=== PATIENT | female | born 1960 | race Caucasian/White ===

== ENCOUNTER → 2016-08-24 | Outpatient (CLI) | payer BC ==
--- NOTE | 2016-08-28 08:46 | MM ---
Reason for exam: screening (asymptomatic). History: Patient is postmenopausal and had first child at age 34. Physical Findings: A clinical breast exam by your physician is recommended on an annual basis and results should be correlated with mammographic findings. MG Screening Mammo w CAD Bilateral CC and MLO view(s) were taken. Finding: There is a vague 6 mm equal obscured round mass in the middle position of the left breast CC view. New finding. ASSESSMENT: Incomplete: need additional imaging evaluation, BI-RAD 0 RECOMMENDATION: Special view mammogram of the left breast. [facility] will attempt to contact patient to return for supplemental views.
== END | disposition home or self-care (01) ==
LOC: RADMAMWWP 06:44
PROVIDERS: ATTEND Family Medicine
DX: Z12.31 Encounter for screening mammogram for malignant neoplasm of breast (principal)

== ENCOUNTER → 2016-08-31 | Outpatient (CLI) | payer BC ==
--- NOTE | 2016-08-31 08:11 | MM ---
Reason for exam: additional evaluation requested from abnormal screening. Last mammogram was performed less than 1 month ago. History: Patient is postmenopausal and had first child at age 34. Physical Findings: Nurse did not find any significant physical abnormalities on exam. MG Work Up Mamm w CAD LT ML and spot compression CC view(s) were taken of the left breast. Prior study comparison: August 24, 2016, bilateral MG screening mammo w CAD. August 09, 2015, mammogram, performed at [facility]. March 13, 2014, mammogram, performed at [facility]. The breast tissue is heterogeneously dense. This may lower the sensitivity of mammography. The questioned lateral asymmetric density on the CC view does not clearly persists. Precautionary 6 month follow up recommended. These results were verbally communicated with the patient and result sheet given to the patient on 08/31/16. ASSESSMENT: Probably benign, BI-RAD 3 RECOMMENDATION: Follow-up diagnostic mammogram of the left breast in 6 months.
== END | disposition home or self-care (01) ==
LOC: RADMAMWWP 06:49
PROVIDERS: ATTEND Family Medicine
DX: R92.8 Other abnormal and inconclusive findings on diagnostic imaging of breast (principal)

== ENCOUNTER → 2017-10-03 | Outpatient (CLI) | payer BC ==
--- NOTE | 2017-10-03 07:35 | MM ---
Reason for exam: additional evaluation requested from prior study. Last mammogram was performed 1 year and 1 month ago. History: Patient is postmenopausal and had first child at age 34. Physical Findings: Nurse did not find any significant physical abnormalities on exam. MG 3D Diag Mammo W/Cad VIKI Bilateral CC and MLO view(s) were taken. Prior study comparison: August 31, 2016, left breast MG work up mamm w CAD LT. August 24, 2016, bilateral MG screening mammo w CAD. The breast tissue is heterogeneously dense. This may lower the sensitivity of mammography. There is chronic nodularity in the left breast. No significant new findings when compared with previous films. These results were verbally communicated with the patient and result sheet given to the patient on 10/03/17. ASSESSMENT: Benign, BI-RAD 2 RECOMMENDATION: Routine screening mammogram of both breasts in 1 year.
== END | disposition home or self-care (01) ==
LOC: RADMAMWWP 06:45
PROVIDERS: ATTEND Family Medicine
DX: R92.8 Other abnormal and inconclusive findings on diagnostic imaging of breast (principal)
CPT/HCPCS: 77062; 77066

== ENCOUNTER → 2018-02-01 | Outpatient (CLI) | payer BC ==
--- NOTE | 2018-02-03 13:05 | MR ---
EXAMINATION TYPE: MR cervical spine wo/w con DATE OF EXAM: 02/01/2018 COMPARISON: 07/07/2014 HISTORY: Neck pain, burning sensation down lt arm, hx surgery 2015 TECHNIQUE: Multiplanar, multisequence images of the cervical spine were acquired utilizing 7.5 mL intravenous Ga davist gadolinium contrast. Diffusion weighted imaging was performed. C2-C3: Mild disc bulge is present with mild anterior thecal sac compression. No cord contact is evide nt. No spinal canal stenosis or neural foraminal stenosis is present. C3-C4: There is a broad-based central disc herniation extending posterior to the C4 level. This has m oderate anterior thecal sac compression. Cord deformity is present. Mild cord contact is present. The se appear to be increased changes comparison. AP spinal canal measures 0.89 cm, stable from compariso n. C4-C5: There is some central focal bulging with mild anterior thecal sac compression. No cord contact is evident. No spinal canal stenosis is present. Neural foramen are patent. C5-C6: No evidence for degenerative disc disease. No disc bulge/herniation or protrusion. No Canal stenosis. Mild to moderate foraminal narrowing is present bilaterally. C6-C7: No evidence for degenerative disc disease. No disc bulge/herniation or protrusion. No Canal stenosis. Moderate foraminal stenosis appears to be present bilaterally. C7-T1: No evidence for degenerative disc disease. No disc bulge/herniation or protrusion. No Canal stenosis. Foramina are patent bilaterally. Cervical segments are intact. There is normal alignment. Cervical spinal cord is of normal signal. Craniovertebral junction relationships are within normal limits. No tonsillar descent beyond 5 mm is evident. IMPRESSION: Central disc herniation C3-4 which appears increased from the comparison. This has moderate anterior thecal sac compression and some cord deformity. No cord signal abnormality is evident. 2. Foraminal narrowing C5-6 C6-7.
== END | disposition home or self-care (01) ==
LOC: RADMRIMAIN 20:29
PROVIDERS: ATTEND Orthopaedic Surgery Orthopaedic Surgery of the Spine
DX: M99.71 Connective tissue and disc stenosis of intervertebral foramina of cervical region (principal); M50.11 Cervical disc disorder with radiculopathy, high cervical region; G95.89 Other specified diseases of spinal cord; M54.6 Pain in thoracic spine; M79.1 Myalgia; Z98.1 Arthrodesis status
CPT/HCPCS: 72156; A9581

== ENCOUNTER → 2018-05-13 | Outpatient (CLI) | payer BC ==
--- NOTE | 2018-05-13 20:15 | MR ---
EXAMINATION TYPE: MR thoracic spine wo con DATE OF EXAM: 05/13/2018 COMPARISON: None HISTORY: Mid back pain and muscle spasms, scoliosis CONTRAST: Performed utilizing 0 mL intravenous Gadavist gadolinium contrast. TECHNIQUE: Multiplanar, multiecho imaging on a 3.0 Domonique magnet is performed through the thoracic spi ne. T2-T3: There is mild right paracentral endplate changes with mild anterior thecal sac contact. No spi nal canal stenosis is present. No cord contact is evident. T3-4: Mild endplate disc bulge has mild anterior thecal sac compression. No cord contact or spinal ca nal stenosis is present T4-5: Mild endplate changes are present with anterior thecal sac compression. No spinal canal stenosi s is present. T5-T6: No spinal canal stenosis is evident. No significant disc bulge or facet hypertrophy is present T6-7: Left and right paracentral disc bulges haven't mild to moderate anterior thecal sac compression . This comes in close approximation with the anterior left spinal cord. No spinal canal stenosis is p resent. T7-8: There is a moderate size right paracentral disc herniation with moderate anterior thecal sac co mpression. No cord contact or spinal canal stenosis is present. Correlate with right radicular sympto ms. T8-9: There is a left paracentral broad-based disc bulge with moderate anterior thecal sac compressio n. No cord contact is evident. This comes in close approximation with the spinal cord. Facet hypertro phy is present with right posterior lateral thecal sac compression which also comes in close approxim ation with the spinal cord. T9-10: Posterior lateral thecal sac compression from facet hypertrophy is present. This comes in clos e approximation with the right posterior spinal cord. No spinal canal stenosis is present. Some right paracentral disc bulging may be present with close approximation with the spinal cord. T10-T11: Facet hypertrophy is posterior lateral thecal sac compression. No spinal canal stenosis pres ent. T11-12: Facet hypertrophy is present with posterior lateral thecal sac compression. No cord contact o r spinal canal stenosis present. Spinal cord maintains normal signal through its visualized course. There is a mild scoliosis present. Vertebral body heights are preserved. Disc desiccation is present in the mid thoracic spine. Disc heights appear preserved. IMPRESSIONS: 1. Multilevel disc bulges and facet hypertrophy with posterior lateral thecal sac compression discuss ed above. Greatest effects appear to be at the T8-9 level without stenosis but in close approximation with the spinal cord. 2. Moderate size right paracentral disc herniation T7-8. Correlate with right radicular symptoms.
== END | disposition home or self-care (01) ==
LOC: RADMRIMAIN 18:37
PROVIDERS: ATTEND Physical Medicine & Rehabilitation
DX: M51.24 Other intervertebral disc displacement, thoracic region (principal); M46.94 Unspecified inflammatory spondylopathy, thoracic region
CPT/HCPCS: 72146

== ENCOUNTER 2018-09-30 11:50 | Emergency (ER) | payer BC ==
[2018-09-30 12:04] VITALS: TEMP 98.6
[2018-09-30] MEDS ORDERED: KETOROLAC 60 MG/2 ML VIAL IM STA (13:26)
[2018-09-30] MEDS ORDERED: MORPHINE SULFATE 4 MG/ML SYRINGE IM STA (13:26)
[2018-09-30] MEDS ORDERED: ORPHENADRINE 30 MG/ML 2 ML VIAL IM STA (13:27)
[2018-09-30] MEDS ORDERED: methylPREDNISolone SOD SUCCI 125 MG/2 ML VIAL IM ONE (13:27)
--- NOTE | 2018-09-30 13:45 | ED ---
Back Pain HPI - General Chief Complaint: Back Pain/Injury Stated Complaint: Back pain Time Seen by Provider: 09/30/18 12:54 Source: patient, RN notes reviewed, old records reviewed Limitations: no limitations - History of Present Illness Initial Comments: Patient is a 4-year-old female presents emergency Department today with complaints of thoracic back pain. Patient states the pain is worse with movement. She's had history of chronic thoracic tenderness as is Patient denies any recent falls or traumas. Denies any saddle anesthesias. She reports she was doing yard work. Patient states that it seemed like her symptoms started when she woke up this morning. - Related Data Home Medications Medication Instructions Recorded Confirmed Atorvastatin [Lipitor] 40 mg PO HS 08/12/14 08/17/14 Cyclobenzaprine [Flexeril] 10 mg PO HS 08/12/14 08/17/14 Levothyroxine Sodium [Synthroid] 125 mcg PO DAILY 08/12/14 08/17/14 Previous Rx's Medication Instructions Recorded Hydrocodone/Acetaminophen [York 1 each PO Q8HR PRN #90 tab 08/18/14 5-325] Acetaminophen with Codeine 1 tab PO Q6H PRN 3 Days #12 tab 09/30/18 [Tylenol w/codeine #3] Ibuprofen 600 mg PO TID #20 tablet 09/30/18 Allergies Allergy/AdvReac Type Severity Reaction Status Date / Time No Known Allergies Allergy Verified 09/30/18 12:01 Review of Systems ROS Statement: Those systems with pertinent positive or pertinent negative responses have been documented in the HPI. ROS Other: All systems not noted in ROS Statement are negative. Past Medical History Past Medical History: Hyperlipidemia, Musculoskeletal Disorder, Sleep Apnea/CPAP/BIPAP, Thyroid Disorder Additional Past Medical History / Comment(s): hx. migraines, numbness left arm, uses CPAP History of Any Multi-Drug Resistant Organisms: None Reported Past Surgical History: Appendectomy, Hernia Repair, Hysterectomy, Orthopedic Surgery, Tubal Ligation Additional Past Surgical History / Comment(s): thyroidectomy, toe surg. Past Anesthesia/Blood Transfusion Reactions: No Reported Reaction Past Psychological History: Depression Smoking Status: Current every day smoker Past Alcohol Use History: None Reported Past Drug Use History: None Reported - Past Family History Mother Family Medical History: No Reported History General Exam - General Exam Comments Initial Comments: 4-year-old female. Alert and oriented 3. No distress. Limitations: no limitations General appearance: alert, in no apparent distress Head exam: Present: atraumatic, normocephalic, normal inspection Eye exam: Present: normal appearance, PERRL, EOMI. Absent: scleral icterus, conjunctival injection, periorbital swelling ENT exam: Present: normal exam, mucous membranes moist Neck exam: Present: normal inspection. Absent: tenderness, meningismus, lymphadenopathy Respiratory exam: Present: normal lung sounds bilaterally. Absent: respiratory distress, wheezes, rales, rhonchi, stridor Cardiovascular Exam: Present: regular rate, normal rhythm, normal heart sounds. Absent: systolic murmur, diastolic murmur, rubs, gallop, clicks GI/Abdominal exam: Present: soft, normal bowel sounds. Absent: distended, tenderness, guarding, rebound, rigid Extremities exam: Present: normal inspection, full ROM, normal capillary refill. Absent: tenderness, pedal edema, joint swelling, calf tenderness Back exam: Present: normal inspection, tenderness (Thoracic spinal tenderness. Muscle spasms noted bilaterally. Pain with any range of motion noted.) Neurological exam: Present: alert, oriented X3, CN II-XII intact Psychiatric exam: Present: normal affect Skin exam: Present: warm, dry, intact, normal color. Absent: rash Course Vital Signs 09/30/18 09/30/18 12:01 15:05 Temperature 98.6 F Pulse Rate 74 61 Respiratory 18 16 Rate Blood Pressure 119/82 120/75 O2 Sat by Pulse 97 95 Oximetry Medical Decision Making - Medical Decision Making 4-year-old female with mid thoracic back pain worse with movement for the past day. She has history of chronic degenerative disease. The symptoms got a little slight Medrol Norflex. Patient was given pain medication as well. She does have some improvement, she has stable vital signs. No belly pain. Denies any saddle anesthesias. At this time patient' will be discharged with a course of anti-inflammatory medicine and pain medication. She states that she does have muscle relaxants that she has been using recently at home. All questions answered return parameters were discussed. - Radiology Data Radiology results: report reviewed Degenerative disc disease and scoliosis tone and thoracic spine Disposition Clinical Impression: Thoracic degenerative disc disease Disposition: HOME SELF-CARE Condition: Good Instructions (If sedation given, give patient instructions): Acute Low Back Pain (ED) Additional Instructions: Patient advised to follow-up with primary care doctor. Return to the emergency department if any alarming signs or symptoms occur. Prescriptions: Ibuprofen 600 mg PO TID #20 tablet Acetaminophen with Codeine [Tylenol w/codeine #3] 1 tab PO Q6H PRN 3 Days #12 tab PRN Reason: Pain Is patient prescribed a controlled substance at d/c from ED?: No Referrals: Antoni Ni MD [Primary Care Provider] - 1-2 days Time of Disposition: 14:45
--- NOTE | 2018-09-30 14:18 | XR ---
Thoracic spine HISTORY: Pain 3 views of the thoracic spine There is an S-shaped thoracic scoliosis. Postop changes are noted in the cervical spine. Multilevel s pondylosis is present. Loss of disc height at the intervertebral levels at the mid thoracic spine. Th oracic vertebral bodies show preserved height. Bone mineralization is reduced. IMPRESSION: Degenerative disc disease and scoliosis.
[2018-09-30 15:13] VITALS: BP 120/75; PULSE 61; RESP 16
== END 2018-09-30 15:05 | disposition home or self-care (01) ==
LOC: EC 11:50
DX: M51.34 Other intervertebral disc degeneration, thoracic region (principal); M41.84 Other forms of scoliosis, thoracic region; E78.5 Hyperlipidemia, unspecified; E07.9 Disorder of thyroid, unspecified; G47.30 Sleep apnea, unspecified; F17.200 Nicotine dependence, unspecified, uncomplicated; Z79.890 Hormone replacement therapy; Z79.899 Other long term (current) drug therapy; Z99.89 Dependence on other enabling machines and devices
CPT/HCPCS: 72070; 99284; 96372 ×4; J2270; J2360; J2930; J1885

== ENCOUNTER → 2018-10-07 | Outpatient (CLI) | payer BC ==
--- NOTE | 2018-10-08 13:46 | MM ---
Reason for exam: screening (asymptomatic). Last mammogram was performed 1 year ago. History: Patient is postmenopausal and had first child at age 34. Physical Findings: A clinical breast exam by your physician is recommended on an annual basis and results should be correlated with mammographic findings. MG Screening Mammo w CAD Bilateral CC and MLO view(s) were taken. Prior study comparison: October 03, 2017, bilateral MG 3d diag mammo w/cad VIKI. August 31, 2016, left breast MG work up mamm w CAD LT. The breast tissue is heterogeneously dense. This may lower the sensitivity of mammography. No suspicious abnormality. No significant changes when compared with prior studies. ASSESSMENT: Negative, BI-RAD 1 RECOMMENDATION: Routine screening mammogram of both breasts in 1 year.
== END | disposition home or self-care (01) ==
LOC: RADMAMWWP 06:47
PROVIDERS: ATTEND Family Medicine
DX: Z12.31 Encounter for screening mammogram for malignant neoplasm of breast (principal)
CPT/HCPCS: 77067

== ENCOUNTER → 2021-01-12 | Outpatient (CLI) | payer BC ==
--- NOTE | 2021-01-14 14:35 | MM ---
Reason for exam: screening (asymptomatic). Last mammogram was performed 2 years and 3 months ago. History: Patient is postmenopausal and had first child at age 34. Physical Findings: A clinical breast exam by your physician is recommended on an annual basis and results should be correlated with mammographic findings. MG 3D Screening Mammo W/Cad Bilateral CC and MLO view(s) were taken. Prior study comparison: October 07, 2018, bilateral MG screening mammo w CAD. October 03, 2017, bilateral MG 3d diag mammo w/cad IVKI. August 24, 2016, bilateral MG screening mammo w CAD. The breast tissue is heterogeneously dense. This may lower the sensitivity of mammography. No significant changes when compared with prior studies. ASSESSMENT: Negative, BI-RAD 1 RECOMMENDATION: Routine screening mammogram of both breasts in 1 year.
== END | disposition home or self-care (01) ==
LOC: RADMAMWWP 14:20
PROVIDERS: ATTEND Family Medicine
DX: Z12.31 Encounter for screening mammogram for malignant neoplasm of breast (principal)
CPT/HCPCS: 77063; 77067

== ENCOUNTER → 2022-04-05 | Outpatient (CLI) | payer BC ==
--- NOTE | 2022-04-05 11:18 | US ---
EXAMINATION TYPE: US carotid duplex BILAT DATE OF EXAM: 04/05/2022 COMPARISON: NONE CLINICAL HISTORY: H53.9 VISUAL DISTURBANCE. No HTN. No hx TIA. TECHNIQUE: Carotid duplex ultrasound examination. Indirect Doppler criteria was utilized. FINDINGS: EXAM MEASUREMENTS: RIGHT: Peak Systolic Velocity (PSV) cm/sec ----- Right CCA: 53.7 ----- Right ICA: 90.8 ----- Right ECA: 116.0 ICA/CCA ratio: 1.7 RIGHT: End Diastole cm/sec ----- Right CCA: 18.0 ----- Right ICA: 36.9 ----- Right ECA: 25.4 LEFT: Peak Systolic Velocity (PSV) cm/sec ----- Left CCA: 68.6 ----- Left ICA: 83.4 ----- Left ECA: 87.8 ICA/CCA ratio: 1.2 LEFT: End Diastole cm/sec ----- Left CCA: 30.2 ----- Left ICA: 38.4 ----- Left ECA: 21.9 VERTEBRALS (direction of flow): Right Vertebral: Antegrade Left Vertebral: Antegrade Rhythm: Normal [employer]IST NOTES: No significant velocity elevations and stenosis. Plaque seen in bilateral bulbs. IMPRESSION: No evidence for hemodynamically significant stenosis. Criteria for Assigning % of Stenosis / Diameter reduction (Estimation based on the indirect measurements of the internal carotid artery velocities (ICA PSV). 1. Normal (no stenosis)=ICA PSV < 125 cm/s: ratio < 2.0: ICA EDV<40 cm/s. 2. Less than 50% stenosis=ICA PSV < 125 cm/s: ratio < 2.0: ICA EDV<40 cm/s. 3. 50 to 69% stenosis=ICA PSV of 125 to 230 cm/s: ration 2.0 ? 4.0: ICA EDV 40-100 cm/s. 4. Greater than 70% stenosis to near occlusion= ICA PSV > 230 cm/s: ratio > 4.0: ICA EDV > 100 cm/s. 5. Near occlusion= ICA PSV velocities may be low or undetectable: variable ratio and ICA EDV. 6. Total occlusion=unable to detect flow.
== END | disposition home or self-care (01) ==
LOC: RADUSWWP 10:25
PROVIDERS: ATTEND Family Medicine
DX: H53.9 Unspecified visual disturbance (principal)
CPT/HCPCS: 93880

== ENCOUNTER → 2022-04-20 | Outpatient (CLI) | payer BC ==
--- NOTE | 2022-04-21 12:05 | MM ---
Reason for Exam: Screening (asymptomatic). Last mammogram was performed 1 year(s) and 3 month(s) ago. Patient History: Menarche at age 15. First Full-Term at age 34. Late child-bearing (after 30). Left ovary removed at age 43. Right ovary removed at age 43. Hysterectomy at age 43. Postmenopausal. Risk Values: Carol 5 year model risk: 2.0%. NCI Lifetime model risk: 8.4%. Prior Study Comparison: 10/03/2017 Bilateral Diagnostic Mammogram, [facility]. 10/07/2018 Bilateral Screening Mammogram, [facility]. 01/12/2021 Bilateral Screening Mammogram, [facility]. Tissue Density: The breast tissue is extremely dense which could obscure a lesion on mammography. Findings: Analyzed By CAD. Pattern appears stable. No significant interval change No suspicious groups of microcalcifications, spiculated or lobular masses, architectural distortion or other secondary signs of malignancy are mammographically apparent. Overall Assessment: Benign, BI-RAD 2 Management: Screening Mammogram of both breasts in 1 year. A negative mammogram report should not preclude additional follow up of suspicious palpable abnormalities. Patient should continue monthly self breast exam. A clinical breast exam by your physician is recommended on an annual basis and results should be correlated with mammographic findings. Electronically signed and approved by: Mason Mccall D.O. Radiologis
== END | disposition home or self-care (01) ==
LOC: RADMAMWWP 16:26
PROVIDERS: ATTEND Family Medicine
DX: Z12.31 Encounter for screening mammogram for malignant neoplasm of breast (principal); Z78.0 Asymptomatic menopausal state
CPT/HCPCS: 77067

== ENCOUNTER → 2023-02-16 | Outpatient (CLI) | payer BC ==
--- NOTE | 2023-02-16 10:35 | CT ---
EXAMINATION TYPE: CT angio chest DATE OF EXAM: 02/16/2023 9:23 AM COMPARISON: None HISTORY: Chest pain CT DLP: 173.80 mGycm Automated exposure control for dose reduction was used. CONTRAST: CTA scan of the thorax is performed without and with IV Contrast, patient injected with 100 ml mL of Isovue 370, pulmonary embolism protocol. . FINDINGS: LUNGS: The lungs are grossly clear, there is no concerning consolidative pneumonia identified. Ther e is no pleural effusion or pneumothorax seen. The tracheobronchial tree is patent. There is a 5 mm left lower lobe pulmonary nodule. MEDIASTINUM: There is satisfactory enhancement of the pulmonary artery and its branches, there is no CT evidence for pulmonary embolism. There are no greater than 1 cm hilar or mediastinal lymph nodes. No pericardial effusion is seen. Aorta normal in course and caliber. No evidence of aneurysm. Central pulmonary arteries enhance normally. OTHER: Numerous hypodensities are seen within the liver largest measuring 7 Hounsfield units compati ble metastatic cysts. Multiple pancreatic calcifications likely sequela of prior pancreatitis. Small hiatal hernia. IMPRESSION: 1. No acute intrathoracic process. No evidence of aortic aneurysm. Central pulmonary arteries enhance normally with no definite filling defect. There is a 5 mm left lower lobe pulmonary nodule for which a six-month follow-up CT scan is recommended. 2. Hepatic cysts 3. Small hiatal hernia.
== END | disposition home or self-care (01) ==
LOC: RADCTMAIN 08:33
PROVIDERS: ATTEND Family Medicine
DX: K76.89 Other specified diseases of liver (principal); K44.9 Diaphragmatic hernia without obstruction or gangrene; R91.1 Solitary pulmonary nodule; R07.89 Other chest pain
CPT/HCPCS: 71275; Q9967

== ENCOUNTER → 2023-03-27 | Outpatient (CLI) | payer BC ==
--- NOTE | 2023-03-27 09:52 | US ---
EXAMINATION TYPE: US abdomen complete DATE OF EXAM: 03/27/2023 COMPARISON: NONE CLINICAL INDICATION: Female, 62 years old with history of K76.89 DISEASE OF LIVER; f/u to ct scan TECHNIQUE: Multiple sonographic images of the abdomen are obtained. FINDINGS: EXAM MEASUREMENTS: Liver Length: 11.3 cm Gallbladder Wall: .2 cm CBD: 0.5 cm Spleen: 7.1 cm Right Kidney: 10.7 x 3.4 x 4.5 cm Left Kidney: 10.6 x 4.6 x 4.2 cm Pancreas: Heterogenous calcifications seen Liver: Multiple cysts seen largest 3.0 x 2.3 x 3.3 cm. Gallbladder: No stones seen Evidence for sonographic Hillman's sign: no CBD: wnl Spleen: wnl Right Kidney: wnl Left Kidney: wnl Upper IVC: wnl Abd Aorta: wnl The intrahepatic portion of the IVC and proximal abdominal aorta are within normal limits. There is no evidence of cholelithiasis. Common bile duct is unremarkable. The visualized portions of the cagle creas are homogenous. The spleen is unremarkable. Kidneys are symmetric and free of hydronephrosis. No renal lesions are seen. IMPRESSION: 1. No evidence for acute process. 2. Scattered hepatic simple appearing and mildly complex hepatic cyst.
== END | disposition home or self-care (01) ==
LOC: RADUSWWP 08:25
PROVIDERS: ATTEND Family Medicine
DX: K76.89 Other specified diseases of liver (principal)
CPT/HCPCS: 76700

== ENCOUNTER → 2023-05-18 | Outpatient (CLI) | payer BC ==
--- NOTE | 2023-05-20 17:11 | MM ---
Reason for Exam: Screening (asymptomatic). Last mammogram was performed 1 year(s) and 1 month(s) ago. Patient History: Menarche at age 15. First Full-Term at age 34. Late child-bearing (after 30). Left ovary removed at age 43. Right ovary removed at age 43. Hysterectomy at age 43. Postmenopausal. Patient has history of breast feeding. Risk Values: Carol 5 year model risk: 2.0%. NCI Lifetime model risk: 8.1%. Prior Study Comparison: 08/24/2016 Bilateral Screening Mammogram, [facility]. 08/31/2016 Left Diagnostic Mammogram, [facility]. 10/03/2017 Bilateral Diagnostic Mammogram, [facility]. 10/07/2018 Bilateral Screening Mammogram, [facility]. 01/12/2021 Bilateral Screening Mammogram, [facility]. 04/20/2022 Bilateral MG screening mammo w CAD, [facility]. Tissue Density: The breast tissue is heterogeneously dense. This may lower the sensitivity of mammography. Findings: Analyzed By CAD. The pattern is symmetrical and stable. No significant interval changes. No suspicious groups of microcalcifications, spiculated or lobular masses, architectural distortion or other secondary signs of malignancy are mammographically apparent. Overall Assessment: Negative, BI-RAD 1 Management: Screening Mammogram of both breasts in 1 year. A negative mammogram report should not preclude additional follow up of suspicious palpable abnormalities. Patient should continue monthly self breast exam. A clinical breast exam by your physician is recommended on an annual basis and results should be correlated with mammographic findings. Electronically signed and approved by: Mason Mccall D.O. Radiologis
== END | disposition home or self-care (01) ==
LOC: RADMAMWWP 06:49
PROVIDERS: ATTEND Family Medicine
DX: Z12.31 Encounter for screening mammogram for malignant neoplasm of breast (principal); Z78.0 Asymptomatic menopausal state
CPT/HCPCS: 77063; 77067

== ENCOUNTER 2024-01-16 10:01 | Day surgery (SDC) | payer BC, MEDICARE ==
[2024-01-10 13:22] VITALS: BMI 23.8
[~2024-01-16 10:01] MED LIST: LIDOCAINE 1% (10MG/ML) FOR IV START INTRADERMA PRN
[2024-01-16 10:25] VITALS: TEMP 97.9
[2024-01-16] MEDS: IV FLUID CONTINUATION 1,000 ML IV ONE (10:33)
[2024-01-16] MEDS: LACTATED RINGERS 1,000 ML IV SCH (10:34)
[2024-01-16] MEDS ORDERED: PROPOFOL 10 MG/ML 20 ML VIAL IV ONE (10:56)
--- NOTE | 2024-01-16 11:07 | P.PCN ---
Date of Procedure: 01/16/24 Procedure(s) Performed: BRIEF HISTORY: Patient is a 63-year-old pleasant white female scheduled for an elective colonoscopy as a part of screening for colon cancer. PROCEDURE PERFORMED: Colonoscopy. PREOPERATIVE DIAGNOSIS: Screening for colon cancer. IV sedation per Anesthesia. PROCEDURE: After informed consent was obtained, the patient, was brought into the endoscopy unit. IV sedation was administered by Anesthesia under continuous monitoring. Digital rectal examination was normal. Initially the Olympus CF-160 flexible video colonoscope was then inserted in the rectum, gradually advanced into the cecum without any difficulty. Careful examination was performed as the scope was gradually being withdrawn. Ileocecal valve and the appendiceal orifice were visualized and appeared normal. Prep was excellent. Mucosa of the cecum, ascending colon, transverse colon, descending colon, sigmoid colon, and rectum appeared normal. Retroflexion was performed in the rectum and small internal hemorrhoids were seen. The patient tolerated the procedure well. IMPRESSION: Normal-appearing colon from rectum to cecum no evidence of colorectal neoplasia. Small internal hemorrhoids. RECOMMENDATIONS: Findings of this examination were discussed with the patient as well as her family. She was advised to have repeat screening colonoscopy in 10 years.
[2024-01-16 11:19] VITALS: RESP 16
[2024-01-16 11:30] VITALS: BP 110/86; PULSE 74
== END 2024-01-16 11:55 | disposition home or self-care (01) ==
LOC: ORWHC2ENDO 10:01
PROVIDERS: ATTEND Internal Medicine Gastroenterology
DX: Z12.11 Encounter for screening for malignant neoplasm of colon (principal); K64.8 Other hemorrhoids; G47.33 Obstructive sleep apnea (adult) (pediatric); E03.9 Hypothyroidism, unspecified; G43.909 Migraine, unspecified, not intractable, without status migrainosus; F32.A Depression, unspecified; F17.210 Nicotine dependence, cigarettes, uncomplicated; Z79.890 Hormone replacement therapy
CPT/HCPCS: 45378

== ENCOUNTER → 2024-08-26 | Outpatient (CLI) | payer MEDICARE ==
--- NOTE | 2024-08-26 12:29 | MM ---
Reason for Exam: Screening (asymptomatic). Last mammogram was performed 1 year(s) and 3 month(s) ago. Patient History: Menarche at age 15. First Full-Term at age 34. Late child-bearing (after 28). Left ovary removed at age 43. Right ovary removed at age 43. Hysterectomy at age 43. Postmenopausal. Patient has history of breast feeding. Risk Values: Carol 5 year model risk: 2.1%. NCI Lifetime model risk: 7.8%. Prior Study Comparison: 10/03/2017 Bilateral Diagnostic Mammogram, [facility]. 10/07/2018 Bilateral Screening Mammogram, [facility]. 01/12/2021 Bilateral Screening Mammogram, [facility]. 04/20/2022 Bilateral MG screening mammo w CAD, [facility]. 05/18/2023 Bilateral MG 3D screening mammo w/cad, [facility]. Tissue Density: The breasts are heterogeneously dense, which may obscure small masses. Findings: Analyzed By CAD. There is no suspicious group of microcalcifications or new suspicious mass in either breast. Overall Assessment: Negative, BI-RAD 1 Management: Screening Mammogram of both breasts in 1 year. . Patient should continue monthly self-breast exams. A clinical breast exam by your physician is recommended on an annual basis. This exam should not preclude additional follow-up of suspicious palpable abnormalities. Note on Carol scores and lifetime risk: 1. A Carol score greater than 3% is considered moderate risk. If this is the case, consider specialist referral to assess eligibility for a risk reducing agent. 2. If overall lifetime risk for the development of breast cancer is 20% or higher, the patient may qualify for future screening with alternating mammogram and breast MRI. [facility], , 08/26/2024 7:20 AM. Electronically signed and approved by: Jm Fritz M.D. Radiologis
== END | disposition home or self-care (01) ==
LOC: RADMAMWWP 06:57
PROVIDERS: ATTEND Family Medicine
DX: Z12.31 Encounter for screening mammogram for malignant neoplasm of breast (principal); R92.333 Mammographic heterogeneous density, bilateral breasts; Z78.0 Asymptomatic menopausal state
CPT/HCPCS: 77063; 77067

== ENCOUNTER → 2024-09-01 | Outpatient (CLI) | payer MEDICARE ==
--- NOTE | 2024-09-01 07:49 | CTL ---
EXAMINATION TYPE: CT Low Dose Lung DATE OF EXAM: 09/01/2024 7:29 AM COMPARISON: CT angiogram chest 02/16/2023 CLINICAL INDICATION: Female, 63 years old with history of Z12.2 LUNG CA SCR F17.210 CURRENT SMOKER, c urrent smoker, 1 pack a day since she was 16, History of tobacco use. TECHNIQUE: Low Dose CT Lung Screening, Low dose computed tomography scan was performed through the est at 1 millimeter thick sections and reconstructed images in the coronal plane at 1 mm thick sectio ns. IV CONTRAST USED: None. SCREENING VISIT: First visit CT DLP: 80.6 mGycm, Automated exposure control for dose reduction was used. CT CTDI: 2.1 mGy FINDINGS: CT DIAGNOSTIC QUALITY: Satisfactory LUNG NODULES: Stable 5 mm solid nodule left lower lobe. No additional nodules noted. LUNGS: COPD: Severity: Mild Fibrosis: Severity:None Lymph nodes: None Other findings: Pleural parenchymal thickening left lower lobe. RIGHT PLEURAL SPACE: Effusion: None Calcification: None Thickening: None Pneumothorax: None LEFT PLEURAL SPACE: Effusion: None Calcification: None Thickening: None Pneumothorax: None HEART: * Size within normal limits. * No significant coronary artery calcifications. OTHER FINDINGS: Upper abdomen: Multiple cysts noted within the liver. Changes of chronic pancreatitis. Bony thorax: Degenerative changes Supraclavicular region: No significant abnormalityOther: No significant abnormalityI IMPRESSION: 1. Stable 5 mm left lower lobe pulmonary nodule. 2. Mild emphysema. CT LUNG RAD AND CT CHEST RECOMMENDATION: Lung-Rad 2 Benign Appearance or Behavior: Continue annual sc reening with LDCT in 12 months. S Modifier (other clinically significant findings): [facility] [place], , 09/01/2024 7:47 AM
== END | disposition home or self-care (01) ==
LOC: RADCTMAIN 06:48
PROVIDERS: ATTEND Family Medicine
DX: Z12.2 Encounter for screening for malignant neoplasm of respiratory organs (principal); F17.210 Nicotine dependence, cigarettes, uncomplicated; R91.1 Solitary pulmonary nodule; J43.9 Emphysema, unspecified
CPT/HCPCS: 71271